=== PATIENT | female | born 1995 | race Caucasian/White ===

== ENCOUNTER 2021-06-28 11:56 | Day surgery (SDC) | payer MEDICAID ==
[2021-06-21 15:33] LABS: GLUCOSE, URINE NEGATIVE (Neg); KETONES,URINE NEGATIVE (Neg); LEUKOCYTE ESTERASE ,URINE SMALL (Neg); NITRITES, URINE NEGATIVE (Neg); OCCULT BLOOD,URINE MODERATE (Neg); PROTEIN,URINE NEGATIVE (Neg); UROBILINOGEN,URINE 0.2 E.U/dL (0.2-1.0)
[2021-06-21 15:38] LABS: BASOPHILS % (AUTO) 0.3 % (0-1); EOSINOPHILS # (AUTO) 0.1 X10'3 (0-0.9); EOSINOPHILS % (AUTO) 0.7 % (0-6); LYMPHOCYTES # (AUTO) 2.6 X10'3 (1.1-4.8); LYMPHOCYTES % (AUTO) 22.7 % (21-51); MEAN CORPUSCULAR HEMOGLOBIN 27.8 PG (27.0-31.0); MEAN CORPUSCULAR HGB CONC 33.5 g/dL (33.0-36.5); MEAN CORPUSCULAR VOLUME 83.2 FL (78-98); MEAN PLATELET VOLUME 7.4 FL (7.4-10.4); MONOCYTES # (AUTO) 0.8 X10'3 (0-0.9); MONOCYTES % (AUTO) 6.5 % (2-12); NEUTROPHILS # (AUTO) 8.1 X10'3 (1.8-7.7); NEUTROPHILS % (AUTO) 69.8 % (42-75); PRE OP HEMATOCRIT 37.6 % (35.0-45.0); PRE OP HEMOGLOBIN 12.6 g/dL (12.0-16.0); PRE OP PLATELET COUNT 413 X10'3 (140-440); RED BLOOD COUNT 4.51 X10'6 (4.20-5.60); RED CELL DISTRIBUTION WIDTH 14.9 % (11.5-14.5)
[2021-06-21 15:52] LABS: CLARITY,URINE SLIGHTLY CLOUDY (Clear); COLOR,URINE STRAW (Yellow); UA COLLECTION TYPE CLN CATCH MIDSTREAM
[2021-06-21 15:53] LABS: BACTERIA,URINE 2+ /HPF (Neg); RBC,URINE 0-2 /HPF (0-2); SQUAMOUS EPITHELIAL CELL,UR MODERATE /LPF (FEW); WBC,URINE 0-4 /HPF (0-4)
[2021-06-21 15:54] LABS: MUCUS STRANDS FEW /LPF (Neg)
[2021-06-21 15:54] LABS: HCG SERUM QL NEGATIVE
[2021-06-21 16:01] LABS: ALBUMIN 3.7 G/DL (3.4-5.0); ALBUMIN/GLOBULIN RATIO 0.9 (1.1-1.5); ALKALINE PHOSPHATASE 125 IU/L (46-116); BLOOD UREA NITROGEN 15 MG/DL (7-18); BUN/CREATININE RATIO 18.1 (6.6-38.0); CALCIUM 9.2 MG/DL (8.5-10.1); CHLORIDE 103 MMOL/L (99-107); CREATININE 0.83 MG/DL (0.40-0.90); PRE OP ALT 26 U/L (30-65); PRE OP ANION GAP 11 (8-16); PRE OP AST 21 U/L (10-37); PRE OP BILIRUB, TOTAL 0.3 MG/DL (0.0-1.0); PRE OP GLUCOSE 85 MG/DL (70-104); PRE OP POTASSIUM 3.9 MMOL/L (3.4-5.1); PRE OP SODIUM 139 MMOL/L (135-145); TOTAL CARBON DIOXIDE 25.4 MMOL/L (24-32); TOTAL PROTEIN 7.8 G/DL (6.4-8.2); eGFR 83 ML/MIN
[~2021-06-28] VITALS: Ht 154.9 cm; Wt 94.0 kg
[2021-06-28] VITALS (9 sets, daily range): BP systolic 125–151; BP diastolic 64–93
[~2021-06-28 11:56] MED LIST: FLO110IN PO; TRAZ-256 PO; ceFOXitin 2GM-NS 100mL ADDvant 100 ML IV ONE
[2021-06-28] MEDS ORDERED: meperidine/PF 25mg/ml syringe IV PRN ×3 (12:05)
[2021-06-28] MEDS ORDERED: proCHLORperazine 10 MG/2 ml inj IV PRN (12:05)
[2021-06-28] MEDS ORDERED: hydrALAZINE 20mg/ml inj. IV PRN (12:05)
[2021-06-28] MEDS ORDERED: ringers solution, lacted 1,000 ML IV SCH (12:05)
[2021-06-28] MEDS ORDERED: acetaminophen 1,000mg/100ml IV 100 ML IV PRN (12:05)
[2021-06-28] MEDS ORDERED: ondansetron/PF 4mg/2ml inj IV PRN (12:05)
[2021-06-28] MEDS ORDERED: morphine 4 MG/ML inj SYRINge IV PRN (12:05)
[2021-06-28] MEDS ORDERED: morphine 2 MG/ML inj. syringe IV PRN (12:05)
[2021-06-28] MEDS ORDERED: labetalol 20mg/4ml (5mg/ml) syringe IV PRN (12:05)
[2021-06-28] MEDS ORDERED: albuterol 2.5 MG/3 ML nebule NEB PRN (12:40)
[2021-06-28] MEDS ORDERED: famotidine 20mg tablet PO PRN (12:40)
[2021-06-28] MEDS ORDERED: BUPIVAcaine/PF 2.5 mg/ml (0.25%) 30ml vial ONE (14:23)
[2021-06-28] MEDS ORDERED: midazolam 1 mg/ML 2ml injection ONE (14:46)
[2021-06-28] MEDS ORDERED: fentaNYL/PF 50MCG/1 ML 2ML syringe ONE (14:46)
[2021-06-28] MEDS ORDERED: ondansetron/PF 4mg/2ml inj ONE (14:56)
[2021-06-28] MEDS ORDERED: LIDOcaine 2% (20mg/ml) 5ml vial ONE (14:56)
[2021-06-28] MEDS ORDERED: propofol inj 20 ML IV ONE (14:56)
[2021-06-28] MEDS ORDERED: dexamethasone sod phosphate 4mg/ml inj. ONE (14:56)
[2021-06-28] MEDS ORDERED: rocuronium 10mg/ml inj IV ONE (14:56)
[2021-06-28] MEDS ORDERED: glycopyrrolate 0.2mg/ml inj ONE (15:32)
[2021-06-28] MEDS ORDERED: neostigmine methylsulfate 1 MG/ML 10ml vial ONE (15:32)
[2021-06-28] MEDS ORDERED: morphine 4 MG/ML inj SYRINge ONE (15:33)
--- NOTE | 2021-06-28 15:45 | NUR ---
Received from OR via [facility], accompanied by Anesthesiologist and report given by Anesthesiologist. PATIENT WAKING UP, NO S/S OF PAIN, V/S WNL, SCD ON, 20G TO RUE, LAP SURGICAL SITES TO ABDOMEN CDI. PERIPAD W/ SCANT DRAINAGE
--- NOTE | 2021-06-28 16:55 | NUR ---
PATIENT A&OX4, DENIES PAIN, V/S WNL, SCD ON, 20G TO RUE D/C, LAP SURGICAL SITES TO ABDOMEN CDI. PERIPAD W/ SCANT DRAINAGE REPLACED WITH NEW ONE FOR D/C. . I HAVE REVIEWED D/C INSTRUCTIONS WITH PATIENT and they have verbalized understanding patient d/c home with all belongings and family gave transport home.
== END 2021-06-28 16:55 | disposition home or self-care (01) ==
LOC: PAS 11:56
PROVIDERS: ATTEND Obstetrics & Gynecology Obstetrics
DX: Z30.2 Encounter for sterilization (principal); N93.9 Abnormal uterine and vaginal bleeding, unspecified; N94.10 Unspecified dyspareunia; F32.A Depression, unspecified; D64.9 Anemia, unspecified; J45.909 Unspecified asthma, uncomplicated; E66.9 Obesity, unspecified; Z68.38 Body mass index [BMI] 38.0-38.9, adult; Z72.89 Other problems related to lifestyle; Z98.890 Other specified postprocedural states; Z79.899 Other long term (current) drug therapy; Z20.822 Contact with and (suspected) exposure to COVID-19; Z80.3 Family history of malignant neoplasm of breast; Z80.8 Family history of malignant neoplasm of other organs or systems
CPT/HCPCS: 36415; 58353; 58671; 80053; 81001; 82948; 84703; 85025; 86885; 86900; 86901; 87088; A4264; J0131; J0694; J1100; J2175; J2250; J2270; J2405; J2704; J2710; J3010; J3490; J7030; J7120; U0003; U0005; Z7506; Z7508; Z7512; A4355; A4618; A4649; A7000